=== PATIENT | female | born 1965 | race Caucasian/White ===

== ENCOUNTER → 2018-12-01 | Outpatient (CLI) | payer BC | END | disposition home or self-care (01) | LOC: VAS 06:49 | DX: M79.662 Pain in left lower leg (principal); M79.89 Other specified soft tissue disorders | CPT/HCPCS: 93971 ==

== ENCOUNTER → 2018-12-08 | Outpatient (CLI) | payer BC | END | disposition home or self-care (01) | LOC: RAD 12:45 | DX: S92.912A Unspecified fracture of left toe(s), initial encounter for closed fracture (principal); X58.XXXA Exposure to other specified factors, initial encounter | CPT/HCPCS: 73660 ==